=== PATIENT | male | born 1965 | race African-American/Black ===

== ENCOUNTER 2023-07-21 09:12 | Emergency (ER) | payer OTHER ==
[2023-07-21 10:38] VITALS: BMI 55.6
[2023-07-21 13:59] VITALS: BP 184/92; PULSE 89; RESP 16; TEMP 98.8
== END 2023-07-21 14:07 | disposition home or self-care (01) ==
LOC: JERFT 09:12
DX: R21 Rash and other nonspecific skin eruption (principal); K59.00 Constipation, unspecified; M53.3 Sacrococcygeal disorders, not elsewhere classified
CPT/HCPCS: 74019-TC-FY; 99283-25

== ENCOUNTER 2023-09-22 04:17 | Day surgery (SDC) | payer OTHER ==
[2023-09-16 12:33] VITALS: BMI 55.3
[2023-09-22] MEDS ORDERED: PROPOFOL 40 ML ONE (15:09)
[2023-09-22] MEDS ORDERED: MIDAZOLAM HCL 2 MG/2 ML SINGLE DOSE VIAL ONE (15:09)
[2023-09-22] MEDS: ceFAZolin SODIUM 1 GM VIAL IVPB ONE (15:41)
[2023-09-22] MEDS ORDERED: BACITRACIN ZINC 15 GM TUBE TOPICAL OINTMENT ONE (16:14)
[2023-09-22] MEDS ORDERED: ACETAMINOPHEN 325 MG TABLET (FP) PO PRN (16:32)
[2023-09-22] MEDS ORDERED: LACTATED RINGERS SOLUTION 1,000 ML IV SCH (16:45)
[2023-09-22] MEDS: oxyCODONE HCL 5 MG TABLET PO PRN (18:12)
[2023-09-22 18:13] VITALS: TEMP 97.7
[2023-09-22] MEDS: ONDANSETRON 4 MG/2 ML VIAL IVPUSH PRN (19:45)
[2023-09-22 19:54] VITALS: BP 138/75; PULSE 68; RESP 20
== END 2023-09-22 20:45 | disposition home or self-care (01) ==
LOC: JASU-SURG 04:17
PROVIDERS: ATTEND Urology
PROC: 0VB60ZZ Excision of Right Tunica Vaginalis, Open Approach (ICD-10-PCS; principal; 2023-09-22 16:00)
DX: N43.3 Hydrocele, unspecified (principal)
CPT/HCPCS: 88302-TC; 94760

== ENCOUNTER 2024-01-23 10:40 | Emergency (ER) | payer OTHER ==
[2024-01-23 10:50] VITALS: RESP 20; TEMP 98.2; BMI 56.1
[2024-01-23 12:41] LABS: BASO % 0.7 % (0-2.0); EOS % 2.4 % (0-4.5); HEMATOCRIT 37.1 % (35.4-49); HEMOGLOBIN 12.2 GM/dL (11.7-16.9); LYMPH % 23.5 % (8-40); MCH 25.8 pg (25.7-33.7); MCHC 32.9 g/dl (32.0-35.9); MEAN CELL VOLUME 78.3 fl (80-96); MEAN PLT VOLUME 6.9 fl (7.5-11.1); MONO % 7.2 % (3.8-10.2); NEUT % 66.2 % (42.8-82.8); PLATELET COUNT 349 10^3/uL (134-434); RBC 4.74 M/mm3 (4.00-5.60); RDW 14.6 % (11.9-15.9); WHITE BLOOD COUNT 8.6 K/mm3 (4.0-10.0)
[2024-01-23 12:47] LABS: INR 1.07 (0.83-1.09); PROTHROMBIN TIME (PATIENT) 12.1 SEC (9.7-13.0)
[2024-01-23 12:49] LABS: ACTIVATED PTT 29.4 SECONDS (25.2-36.5)
[2024-01-23 13:07] LABS: POTASSIUM 4.2 mmol/L (3.5-5.1)
[2024-01-23 13:09] LABS: CALCIUM 9.7 mg/dL (8.5-10.1)
[2024-01-23 13:10] LABS: ALBUMIN 3.3 g/dl (3.4-5.0); BLOOD UREA NITROGEN 8.4 mg/dL (7-18); MAGNESIUM 1.9 mg/dL (1.8-2.4)
[2024-01-23 13:14] LABS: BILIRUBIN,TOTAL 0.4 mg/dL (0.2-1); TOT PROT 7.7 g/dl (6.4-8.2)
[2024-01-23 15:03] VITALS: BP 154/68; PULSE 78
[2024-01-23] MEDS ORDERED: PIPERACILLIN/TAZOB 4.5 GM 4.5 GM/100 ML BAG IVPB ONE (15:07)
[2024-01-23] MEDS: PIPERACILLIN/TAZOB 4.5 GM 4.5 GM in DEXTROSE 5%-WATER 100 ML IVPB ONE (15:08)
== END 2024-01-23 16:06 | disposition home or self-care (01) ==
LOC: JER 10:40
DX: N49.2 Inflammatory disorders of scrotum (principal)
CPT/HCPCS: 36415; 76870-TC; 80053; 83735; 85025; 85610; 85730; 99284-25